=== PATIENT | male | born 1940 | race Caucasian/White ===

== ENCOUNTER 2016-11-06 00:27 | Inpatient (IN) | payer OTHER ==
--- NOTE | 2016-11-06 01:07 | PDOC ---
History of Present Illness - General History Source: Patient Exam Limitations: No Limitations - History of Present Illness Initial Comments: 11/06/16 01:14 The patient is a 76 year old male with history significant for inguinal hernia who presents to the ED complaining of a painful right lower abdominal mass that began this evening while pulling luggage. He was unable to reduce it himself and came to the ED for further evaluation. No fever or chills. No nausea, vomiting, or diarrhea. <Franny Her - Last Filed: 11/06/16 02:11> <Esperanza King - Last Filed: 11/06/16 05:44> - General Chief Complaint: Pain, Acute Stated Complaint: HERNIA Time Seen by Provider: 11/06/16 00:51 Past History <Franny Her - Last Filed: 11/06/16 02:11> - Psycho/Social/Smoking Cessation Hx Suicidal Ideation: No Smoking History: Never smoked <Esperanza King - Last Filed: 11/06/16 05:44> - Past Medical History Allergies/Adverse Reactions: Allergies Allergy/AdvReac Type Severity Reaction Status Date / Time No Known Allergies Allergy Verified 11/06/16 00:37 Home Medications: Ambulatory Orders Aspirin [ASA -] 81 mg PO DAILY 11/06/16 Lisinopril [Prinivil] 20 mg PO DAILY 11/06/16 Review of Systems - Review of Systems Able to Perform ROS?: Yes Comments:: 11/06/16 01:17 GENERAL/CONSTITUTIONAL: No fever or chills. No weakness. HEAD, EYES, EARS, NOSE AND THROAT: No change in vision. No ear pain or discharge. No sore throat CARDIOVASCULAR: No chest pain or shortness of breath. RESPIRATORY: No cough, wheezing, or hemoptysis. GASTROINTESTINAL: Right inguinal pain, right inguinal mass. No nausea, vomiting , diarrhea or constipation. GENITOURINARY: No dysuria, frequency, or change in urination. MUSCULOSKELETAL: No joint or muscle swelling or pain. No neck or back pain. SKIN: No rash NEUROLOGIC: No headache, vertigo, loss of consciousness, or change in strength/ sensation. ENDOCRINE: No increased thirst. No abnormal weight change. HEMATOLOGIC/LYMPHATIC: No anemia, easy bleeding, or history of blood clots. ALLERGIC/IMMUNOLOGIC: No hives or skin allergy. <Franny Her - Last Filed: 11/06/16 02:11> *Physical Exam - Vital Signs Last Vital Signs Temp Pulse Resp BP Pulse Ox 97.9 F 56 L 18 190/80 98 11/06/16 00:35 11/06/16 00:35 11/06/16 00:35 11/06/16 00:35 11/06/16 00:35 - Physical Exam Comments: 11/06/16 01:17 GENERAL: Awake, alert, and fully oriented, mildly uncomfortable appearing. HEAD: No signs of trauma EYES: PERRLA, EOMI, sclera anicteric, conjunctiva clear ENT: Auricles normal inspection, hearing grossly normal, nares patent, oropharynx clear without exudates. Moist mucosa NECK: Normal ROM, supple, no lymphadenopathy, JVD, or masses LUNGS: Breath sounds equal, clear to auscultation bilaterally. No wheezes, and no crackles HEART: Regular rate and rhythm, normal S1 and S2, no murmurs, rubs or gallops ABDOMEN: Incarcerated right inguinal hernia, tender to palpation. Soft, normoactive bowel sounds. No guarding, no rebound. EXTREMITIES: Normal range of motion, no edema. No clubbing or cyanosis. No cords, erythema, or tenderness NEUROLOGICAL: Cranial nerves II through XII grossly intact. Normal speech, normal gait SKIN: Warm, Dry, normal turgor, no rashes or lesions noted. <Franny Her - Last Filed: 11/06/16 02:11> - Vital Signs Last Vital Signs Temp Pulse Resp BP Pulse Ox 97.9 F 56 L 18 190/80 98 11/06/16 00:35 11/06/16 00:35 11/06/16 00:35 11/06/16 00:35 11/06/16 00:35 <Esperanza King - Last Filed: 11/06/16 05:44> Heart Score/ECG Review #1 11/06/16 02:11 EKG obtained 2:09 Marked sinus bradycardia at 42 bpm. Abnormal ECG. <Franny Her - Last Filed: 11/06/16 02:11> ED Treatment Course - LABORATORY CBC & Chemistry Diagram: 11/06/16 02:04 11/06/16 02:04 <Franny Her Last Filed: 11/06/16 02:11> - LABORATORY CBC & Chemistry Diagram: 11/06/16 02:04 11/06/16 02:04 <Esperanza King - Last Filed: 11/06/16 05:44> Medical Decision Making - Medical Decision Making 11/06/16 02:21 Patient Name: Michael Young This is a preliminary report by imaging production mechanic Exam: Right inguinal sonogram Images: 12 Clinical indication: Incarcerated hernia. Impression: A complex ovoid process is seen in the right inguinal canal with surrounding fluid. This may represent bowel with contents in the lumen. Heterogeneous echogenic components are noted. Consider cross-sectional imaging for further evaluation. THIS DOCUMENT HAS BEEN ELECTRONICALLY SIGNED 11/06/16 05:04 Patient Name: Michael Young THIS IS A PRELIMINARY REPORT FROM [facility] DATE OF SERVICE: 2016-11-06 04:10:51.0 IMAGES: [id number] EXAM: ABDOMEN & PELVIS CT WITH CONTR HISTORY:Right inguinal hernia COMPARISON: None. TECHNIQUE: Ct of the abdomen and pelvis with serial axial images extending from the dome of the liver to the perineum was performed following the intraqvenous administration of vascular contrat and the administration of gastrointestinal contrast. FINDINGS:Liver: Normal there are small hepatic cysts Spleen: Normal Pancreas: Normal Gallbladder: Normal Stomach: Normal Small bowel: There is a focal thickened segment of small bowel in the right lower quadrant without pneumatosis , or obstruction. Large bowel: There is diverticulosis without diverticulitis. Appendix: Appendix is visualized posterior to the cecum and appears normal. Adrenals: Normal Kidneys: Right renal cyst. There is no hydronephrosis, renal stone. Vascular: There are mild atherosclerotic changes in the abdominal aorta. Mesenteric branches enhance normally Lymphatic: There no enlarged lymph nodes. Peritoneal column there is no free peritoneal air, or fluid. There is some haziness in the right lower quadrant mesenteric fat. Pelvis: Prostate appears normal. Bladder appears normal. There is a right inguinal hernia. There is a fluid collection within the inguinal hernia and there is some herniated within both inguinal canals. Inferior thorax: Normal Skeletal: Normal focus of lucency in the L3 vertebral body is likely related to a hemangioma IMPRESSION: Right inguinal hernia containing a small amount of fluid. No herniated bowel is time. Segment of thickened small bowel in the right lower quadrant may reflect edema from previous, intermittent herniation, or inflammation. Correlation with history is recommended THIS DOCUMENT HAS BEEN ELECTRONICALLY SIGNED Dr. Hankins, surgeon is aware of the patient. Pt will be seen by surgery in the AM; Hospitalist will admit the patient <Esperanza King - Last Filed: 11/06/16 05:44> *DC/Admit/Observation/Transfer - Attestations Scribe Attestion: 11/06/16 01:19 Documentation prepared by Franny Her, acting as biomedical photographer for Esperanza King MD. <Franny Her - Last Filed: 11/06/16 02:11> - Discharge Dispostion Admit: Yes <Esperanza King - Last Filed: 11/06/16 05:44> Diagnosis at time of Disposition: Unilateral incarcerated inguinal hernia - Discharge Dispostion Condition at time of disposition: Guarded
[2016-11-06] MEDS ORDERED: SODIUM CHLORIDE 0.9% 500 ML INFUS.BAG IV ONE (01:17)
[2016-11-06] MEDS ORDERED: morphine CARPU-JECT 2 MG/1 ML DISP.SYRIN IVPUSH ONE (01:17)
[2016-11-06 02:11] LABS: BASOPHIL 0.8 % (0-2.0); EOSINOPHIL 2.7 % (0-4.5); MCH 28.4 pg (25.7-33.7); MCHC 32.9 g/dl (32.0-35.9); MEAN CELL VOLUME 86.2 fl (80-96); MEAN PLT VOLUME 9.2 fl (7.5-11.1); NEUTROPHILS 58.5 % (42.8-82.8); PLATELET COUNT 225 K/MM3 (134-434); RDW 13.8 % (11.9-15.9); WHITE BLOOD COUNT 9.1 K/mm3 (4.0-10.0)
[2016-11-06 02:27] LABS: INR 1.08 (0.82-1.09); PROTHROMBIN TIME (PATIENT) 11.9 SEC (9.98-11.88)
[2016-11-06] MEDS ORDERED: morphine CARPU-JECT 2 MG/1 ML DISP.SYRIN ONE (02:33)
[2016-11-06 03:20] LABS: ALBUMIN 4.1 g/dl (3.4-5.0); ALK PHOS 69 U/L (45-117); ANION GAP 6 (8-16); BILIRUBIN,TOTAL 0.4 mg/dL (0.2-1.0); CALCIUM 9.4 mg/dL (8.5-10.1); CO2 34 mmol/L (21-32); COCKROFT - GAULT 81.89; CREATININE 0.9 mg/dL (0.7-1.3); GLUCOSE,RANDOM 99 mg/dL (74-106); SGOT/AST 20 U/L (15-37); SGPT/ALT 32 U/L (12-78); TOT PROT 7.1 g/dl (6.4-8.2)
--- NOTE | 2016-11-06 06:30 | HP ---
CHIEF COMPLAINT: right groin pain s/p lifting luggage PCP: Jeferson Grace HISTORY OF PRESENT ILLNESS: This is a 76 yo man with history of HTN and BPH who presents for escalating right groin pain. Patient states he recently travelled from the [place] and was lifting his and his 's luggage repeatedly during airport delays. Upon arriving to his home, he felt a gradual escalating pain in his right groin. He denies trauma. ER course was notable for: (1) right inguinal pain (2) hernia on US and CT Recent Travel: Arrived from 11/05/16 PAST MEDICAL HISTORY: HTN, BPH PAST SURGICAL HISTORY: denies Social History: Smoking: denies Alcohol: denies Drugs: denies Allergies No Known Allergies Allergy (Verified 11/06/16 00:37) HOME MEDICATIONS: Home Medications 3 Medication Instructions Recorded Aspirin [ASA -] 81 mg PO DAILY 11/06/16 Hydrochlorothiazide [Hctz -] 25 mg PO DAILY 11/06/16 Lisinopril [Prinivil] 20 mg PO DAILY 11/06/16 REVIEW OF SYSTEMS CONSTITUTIONAL: Absent: fever, chills, diaphoresis, generalized weakness, malaise, loss of appetite, weight change HEENT: Absent: rhinorrhea, nasal congestion, throat pain, throat swelling, difficulty swallowing, mouth swelling, ear pain, eye pain, visual changes CARDIOVASCULAR: Absent: chest pain, syncope, palpitations, irregular heart rate, lightheadedness , peripheral edema RESPIRATORY: Absent: cough, shortness of breath, dyspnea with exertion, orthopnea, wheezing, stridor, hemoptysis GASTROINTESTINAL: Absent: abdominal pain, abdominal distension, nausea, vomiting, diarrhea, constipation, melena, hematochezia GENITOURINARY: right groin pain Absent: dysuria, frequency, urgency, hesitancy, hematuria, flank pain, genital pain MUSCULOSKELETAL: Absent: myalgia, arthralgia, joint swelling, back pain, neck pain SKIN: Absent: rash, itching, pallor HEMATOLOGIC/IMMUNOLOGIC: Absent: easy bleeding, easy bruising, lymphadenopathy, frequent infections ENDOCRINE: Absent: unexplained weight gain, unexplained weight loss, heat intolerance, cold intolerance NEUROLOGIC: Absent: headache, focal weakness or paresthesias, dizziness, unsteady gait, seizure, mental status changes, bladder or bowel incontinence PSYCHIATRIC: Absent: anxiety, depression, suicidal or homicidal ideation, hallucinations. PHYSICAL EXAMINATION Vital Signs - 24 hr 3 11/06/16 11/06/16 00:35 05:35 Temperature 97.9 F Pulse Rate 56 L Pulse Rate [ 55 L Right Radial] Respiratory 18 22 Rate Blood Pressure 190/80 Blood Pressure 160/90 [Right Arm] O2 Sat by Pulse 98 96 Oximetry (%) GENERAL: Awake, alert, and fully oriented, in no acute distress. HEAD: Normal with no signs of trauma. EYES: Pupils equal, round and reactive to light, extraocular movements intact, sclera anicteric, conjunctiva clear. No lid lag. EARS, NOSE, THROAT: Ears normal, nares patent, oropharynx clear without exudates. Moist mucous membranes. NECK: Normal range of motion, supple without lymphadenopathy, JVD, or masses. LUNGS: Breath sounds equal, clear to auscultation bilaterally. No wheezes, and no crackles. No accessory muscle use. HEART: Regular rate and rhythm, normal S1 and S2 without murmur, rub or gallop. ABDOMEN: Soft, nontender, not distended, normoactive bowel sounds, no guarding, no rebound, no masses. No hepatomegaly or splenomegaly. GENITALIA: uncircumcised. testes are descended bilaterally, firm without masses or lesions. Soft mobile non-reducible mass noted in right inguinal canal MUSCULOSKELETAL: Normal range of motion at all joints. No bony deformities or tenderness. No CVA tenderness. UPPER EXTREMITIES: 2+ pulses, warm, well-perfused. No cyanosis. No clubbing. No peripheral edema. LOWER EXTREMITIES: 2+ pulses, warm, well-perfused. No calf tenderness. No peripheral edema. NEUROLOGICAL: Cranial nerves II-XII intact. Normal speech. Normal gait. PSYCHIATRIC: Cooperative. Good eye contact. Appropriate mood and affect. SKIN: Warm, dry, normal turgor, no rashes or lesions noted, normal capillary refill. Imaging: Patient Name: Michael Young THIS IS A PRELIMINARY REPORT FROM [facility]CH[facility] DATE OF SERVICE: 2016-11-06 04:10:51.0 IMAGES: [id number] EXAM: ABDOMEN & PELVIS CT WITH CONTR HISTORY:Right inguinal hernia COMPARISON: None. TECHNIQUE: Ct of the abdomen and pelvis with serial axial images extending from the dome of the liver to the perineum was performed following the intraqvenous administration of vascular contrat and the administration of gastrointestinal contrast. FINDINGS:Liver: Normal there are small hepatic cysts Spleen: Normal Pancreas: Normal Gallbladder: Normal Stomach: Normal Small bowel: There is a focal thickened segment of small bowel in the right lower quadrant without pneumatosis , or obstruction. Large bowel: There is diverticulosis without diverticulitis. Appendix: Appendix is visualized posterior to the cecum and appears normal. Adrenals: Normal Kidneys: Right renal cyst. There is no hydronephrosis, renal stone. Vascular: There are mild atherosclerotic changes in the abdominal aorta. Mesenteric branches enhance normally Lymphatic: There no enlarged lymph nodes. Peritoneal column there is no free peritoneal air, or fluid. There is some haziness in the right lower quadrant mesenteric fat. Pelvis: Prostate appears normal. Bladder appears normal. There is a right inguinal hernia. There is a fluid collection within the inguinal hernia and there is some herniated within both inguinal canals. Inferior thorax: Normal Skeletal: Normal focus of lucency in the L3 vertebral body is likely related to a hemangioma IMPRESSION: Right inguinal hernia containing a small amount of fluid. No herniated bowel is time. Segment of thickened small bowel in the right lower quadrant may reflect edema from previous, intermittent herniation, or inflammation. Correlation with history is recommended THIS DOCUMENT HAS BEEN ELECTRONICALLY SIGNED Patient Name: Michael Young This is a preliminary report by imaging extension service advisor Exam: Right inguinal sonogram Images: 12 Clinical indication: Incarcerated hernia. Impression: A complex ovoid process is seen in the right inguinal canal with surrounding fluid. This may represent bowel with contents in the lumen. Heterogeneous echogenic components are noted. Consider cross-sectional imaging for further evaluation. THIS DOCUMENT HAS BEEN ELECTRONICALLY SIGNED Laboratory Results - last 24 hr 3 11/06/16 11/06/16 11/06/16 02:04 02:04 02:04 WBC 9.1 RBC 4.74 Hgb 13.4 Hct 40.9 MCV 86.2 MCHC 32.9 RDW 13.8 Plt Count 225 MPV 9.2 Neutrophils % 58.5 Lymphocytes % 31.0 Monocytes % 7.0 Eosinophils % 2.7 Basophils % 0.8 INR 1.08 PTT (Actin FS) 32.9 Sodium Potassium Chloride Carbon Dioxide Anion Gap BUN Creatinine Creat Clearance w eGFR Random Glucose Calcium Total Bilirubin AST ALT Alkaline Phosphatase Total Protein Albumin Blood Type Antibody Screen 3 11/06/16 11/06/16 02:04 02:04 WBC RBC Hgb Hct MCV MCHC RDW Plt Count MPV Neutrophils % Lymphocytes % Monocytes % Eosinophils % Basophils % INR PTT (Actin FS) Sodium 140 Potassium 3.5 Chloride 100 Carbon Dioxide 34 H Anion Gap 6 L BUN 16 Creatinine 0.9 Creat Clearance w eGFR > 60 Random Glucose 99 Calcium 9.4 Total Bilirubin 0.4 AST 20 ALT 32 Alkaline Phosphatase 69 Total Protein 7.1 Albumin 4.1 Blood Type A POSITIVE Antibody Screen Negative ASSESSMENT/PLAN: A: 76 yo man with non-reducible hernia on right inguinal canal. P: right inguinal incarcerated hernia -pre-op labs including CBC, CMP, coags, T&S, lactate -pain management -NPO for possible surgery -surgery Hankins following HTN -continue home meds F/E/N -NPO DVT ppx -OOB Dispo: The patient needs inpatient care for his emergent condition. Code Status: FULL CODE Visit type - Emergency Visit Emergency Visit: Yes ED Registration Date: 11/06/16 Care time: The patient presented to the Emergency Department on the above date and was hospitalized for further evaluation of their emergent condition. - New Patient This patient is new to me today: Yes Date on this admission: 11/18/16 - Critical Care Critical Care patient: No
[2016-11-06] MEDS ORDERED: METRONIDAZOLE 500 MG PREMIXED 100 ML IVPB SCH (10:00)
[2016-11-06] MEDS ORDERED: ASPIRIN 81 MG CHEWABLE TABLETS PO SCH (10:00)
[2016-11-06] MEDS ORDERED: CEFTRIAXONE 50 ML IVPB SCH (10:00)
--- NOTE | 2016-11-06 10:08 | CONSULT ---
- Consultation REQUESTING PROVIDER: Jordan Olivier OYSTER CULTURIST CONSULT REQUEST: We have been asked to surgically evaluate this patient for ( specify). PCP:Alisha Olivier HISTORY OF PRESENT ILLNESS: Right groin pain after lifting a suitcase while traveling; patient w/ known RIH and possible LIH presented as noted; he was thought to have an incarcerated RIH; CT a/p was done; findings are reviewed; he has no c/o today; wants to eat; no abdominal pain. PMHx: HTN PSHx: none Home Medications Medication Instructions Recorded Aspirin [ASA -] 81 mg PO DAILY 11/06/16 Hydrochlorothiazide [Hctz -] 25 mg PO DAILY 11/06/16 Lisinopril [Prinivil] 20 mg PO DAILY 11/06/16 Allergies Allergy/AdvReac Type Severity Reaction Status Date / Time No Known Allergies Allergy Verified 11/06/16 00:37 RPHYSICAL EXAM: GENERAL: Awake, alert, and fully oriented, in no acute distress. HEAD: Normal with no signs of trauma. EYES: PERRL, sclera anicteric, conjunctiva clear. NECK: Normal ROM, supple without lymphadenopathy, JVD, or masses. ABDOMEN: Soft, nontender, not distended, normoactive bowel sounds, no guarding, no rebound, no masses. No organomegaly. Reducible RIH and LIH; genitalia re normal; both testes are palpable. Skin is normal in both groins. MUSCULOSKELETAL: Normal ROM at all joints. No bony deformities or tenderness. No CVA tenderness. UPPER EXTREMITIES: 2+ pulses, warm, well-perfused. No cyanosis. Cap refill <2 seconds. No peripheral edema. LOWER EXTREMITIES: 2+ pulses, warm, well-perfused. No calf tenderness. No peripheral edema. NEUROLOGICAL: Normal speech, gait not observed. PSYCH: Cooperative. Good eye contact. Appropriate mood and affect. SKIN: Warm, dry, normal turgor, no rashes or lesions noted. Vital Signs Temperature 97.7 F 11/06/16 08:30 Pulse Rate 48 L 11/06/16 08:30 Respiratory Rate 18 11/06/16 08:30 Blood Pressure 158/72 11/06/16 08:30 O2 Sat by Pulse Oximetry (%) 96 11/06/16 05:35 Lab Results WBC 9.1 K/mm3 (4.0-10.0) 11/06/16 02:04 RBC 4.74 M/mm3 (4.00-5.60) 11/06/16 02:04 Hgb 13.4 GM/dL (11.7-16.9) 11/06/16 02:04 Hct 40.9 % (35.4-49) 11/06/16 02:04 MCV 86.2 fl (80-96) 11/06/16 02:04 MCHC 32.9 g/dl (32.0-35.9) 11/06/16 02:04 RDW 13.8 % (11.9-15.9) 11/06/16 02:04 Plt Count 225 K/MM3 (134-434) 11/06/16 02:04 Sodium 140 mmol/L (136-145) 11/06/16 02:04 Potassium 3.5 mmol/L (3.5-5.1) 11/06/16 02:04 Chloride 100 mmol/L (98-107) 11/06/16 02:04 Carbon Dioxide 34 mmol/L (21-32) H 11/06/16 02:04 Anion Gap 6 (8-16) L 11/06/16 02:04 BUN 16 mg/dL (7-18) 11/06/16 02:04 Creatinine 0.9 mg/dL (0.7-1.3) 11/06/16 02:04 Random Glucose 99 mg/dL (74-106) 11/06/16 02:04 Calcium 9.4 mg/dL (8.5-10.1) 11/06/16 02:04 Blood Type A POSITIVE 11/06/16 02:04 Antibody Screen Negative 11/06/16 02:04 INR 1.08 (0.82-1.09) 11/06/16 02:04 CT a/p reviewed IMP: BIH's; right ?? incarcerated and now reduced PLAN Suggest BIH repair w/ mesh on this admission; d/w patient in [place]; he is amenable to same; r/b/t/a's d/w him; will put him on the OR add on schedule for 11/07/16; keep NPO after MN. Thank you Alek Hankins MD FACS Visit type - Case Type Case Type: ED Admission - Emergency Emergency Visit: Yes ED Registration Date: 11/06/16 Care time: The patient presented to the Emergency Department on the above date and was hospitalized for further evaluation of their emergent condition. - New patient This patient is new to me today: Yes Date on this admission: 11/06/16 - Critical Care Critical Care patient: No
[2016-11-06] MEDS: HYDROCHLOROTHIAZIDE 12.5 MG CAPSULE (FP) PO SCH ×2 (12:24→15:35)
[2016-11-06] MEDS: LISINOPRIL 20 MG TABLET (FP) PO SCH ×2 (12:25→15:35)
[2016-11-06] MEDS: PIPERACILLIN/TAZOB 3.375 GM/50 ML PRE-DOCKED IVPB SCH ×2 (12:45→17:16)
--- NOTE | 2016-11-06 13:08 | HOSP ---
Physical Examination Vital Signs: Vital Signs Temperature 97.7 F 11/06/16 08:30 Pulse Rate 48 L 11/06/16 08:30 Respiratory Rate 18 11/06/16 08:30 Blood Pressure 158/72 11/06/16 08:30 O2 Sat by Pulse Oximetry (%) 96 11/06/16 05:35 Findings/Remarks: Subjective: The patient was seen and examined at the bedside, he has no complaints of pain at this time. Current Medications Generic Name Dose Route Start Last Admin Trade Name Steffanie PRN Reason Stop Dose Admin Aspirin 81 mg 11/06/16 10:00 11/06/16 12:24 Asa - PO Not Given DAILY EJ Hydrochlorothiazide 25 mg 11/06/16 10:00 11/06/16 12:24 Hctz - PO Not Given DAILY EJ Lisinopril 20 mg 11/06/16 10:00 11/06/16 12:25 Prinivil PO Not Given DAILY EJ Piperacillin Sod/Tazobactam Sod 3.375 gm 11/06/16 11:30 11/06/16 12:45 Zosyn 3.375gm Ivpb (Pre-Docked) IVPB 3.375 gm Q8H-IV EJ Administration Protocol Objective: Vital Signs Period Temp Pulse Resp BP Sys/Collins Pulse Ox Last 24 Hr 97.7 F-97.9 F 48-56 18-22 158-190/72-90 96-98 Physical Exam: General: NAD, A&Ox3 Lungs: CTA bilaterally Heart: Bradycardia, S1S2 Abd: Soft, non-tender, non-distended. Normoactive bowel sounds. Reducible right inguinal hernia Ext: War, well-perfused. 2+ DP/PT bilaterally Neuro: CN 2-12 intact CBCD WBC 9.1 K/mm3 (4.0-10.0) 11/06/16 02:04 RBC 4.74 M/mm3 (4.00-5.60) 11/06/16 02:04 Hgb 13.4 GM/dL (11.7-16.9) 11/06/16 02:04 Hct 40.9 % (35.4-49) 11/06/16 02:04 MCV 86.2 fl (80-96) 11/06/16 02:04 MCHC 32.9 g/dl (32.0-35.9) 11/06/16 02:04 RDW 13.8 % (11.9-15.9) 11/06/16 02:04 Plt Count 225 K/MM3 (134-434) 11/06/16 02:04 MPV 9.2 fl (7.5-11.1) 11/06/16 02:04 CMP Sodium 140 mmol/L (136-145) 11/06/16 02:04 Potassium 3.5 mmol/L (3.5-5.1) 11/06/16 02:04 Chloride 100 mmol/L (98-107) 11/06/16 02:04 Carbon Dioxide 34 mmol/L (21-32) H 11/06/16 02:04 Anion Gap 6 (8-16) L 11/06/16 02:04 BUN 16 mg/dL (7-18) 11/06/16 02:04 Creatinine 0.9 mg/dL (0.7-1.3) 11/06/16 02:04 Creat Clearance w eGFR > 60 (>60) 11/06/16 02:04 Random Glucose 99 mg/dL (74-106) 11/06/16 02:04 Calcium 9.4 mg/dL (8.5-10.1) 11/06/16 02:04 Total Bilirubin 0.4 mg/dL (0.2-1.0) 11/06/16 02:04 AST 20 U/L (15-37) 11/06/16 02:04 ALT 32 U/L (12-78) 11/06/16 02:04 Alkaline Phosphatase 69 U/L (45-117) 11/06/16 02:04 Total Protein 7.1 g/dl (6.4-8.2) 11/06/16 02:04 Albumin 4.1 g/dl (3.4-5.0) 11/06/16 02:04 Assessment: This is a 76 year old male with PMHx of HTN, BPH who presented to the ED with right groin pain. Plan: 1) Surgery: Reducible right inguinal hernia - For repair tomorrow - NPO after midnight - Appreciate surgery consult 2) ID: Possible acute diverticulitis - As evidence on CTAP: thickening of the terminal ileum wall consistent with ileitis, minimal stranding surrounding the junction of the distal descending and proximal sigmoid colon that may represent early/very minimal acute appendicitis vs. mild epiploic appendagitis - WBC wnl, afebrile - Discussed with Dr. Hankins, recommendation to start abx, ceftriaxone and flagyl , however flagyl is on backorder, will start zosyn (approved by ID, Dr. Mott) 3) Cardiology: HTN - Continue Hctz - Continue Lisinopril - Hold ASA for surgery 4) F/E/N: - Regular diet - NPO after midnight - Monitor electrolytes 5) Prophylaxis: - OOB ambulating - SCDs bilaterally - Hold chemical dvt prophylaxis for surgery tomorrow 6) Dispo: - Requires continued inpatient care CODE STATUS: FULL CODE
[2016-11-06 13:46] VITALS: BMI 28.8
[2016-11-07] MEDS: PIPERACILLIN/TAZOB 3.375 GM/50 ML PRE-DOCKED IVPB SCH ×2 (02:20→09:23)
[2016-11-07] MEDS: HYDROCHLOROTHIAZIDE 12.5 MG CAPSULE (FP) PO SCH (09:22)
[2016-11-07] MEDS: LISINOPRIL 20 MG TABLET (FP) PO SCH (09:23)
--- NOTE | 2016-11-07 10:37 | EKG ---
Test Reason : Blood Pressure : / mmHG Vent. Rate : 063 BPM Atrial Rate : 063 BPM P-R Int : 160 ms QRS Dur : 084 ms QT Int : 430 ms P-R-T Axes : 054 021 017 degrees QTc Int : 440 ms SINUS RHYTHM WITH SINUS ARRHYTHMIA WITH OCCASIONAL PREMATURE VENTRICULAR COMPLEXES OTHERWISE NORMAL ECG WHEN COMPARED WITH ECG OF 06-NOV-2016 02:09, PREMATURE VENTRICULAR COMPLEXES ARE NOW PRESENT VENT. RATE HAS INCREASED BY 21 BPM Confirmed by REMBERTO WALTON, VERO ([id number]) on 11/07/2016 10:36:54 AM Referred By: Isaac LORENZO Confirmed By:VERO SR MD
--- NOTE | 2016-11-07 10:41 | EKG ---
Test Reason : Blood Pressure : / mmHG Vent. Rate : 042 BPM Atrial Rate : 042 BPM P-R Int : 162 ms QRS Dur : 080 ms QT Int : 452 ms P-R-T Axes : 053 026 029 degrees QTc Int : 377 ms MARKED SINUS BRADYCARDIA ABNORMAL ECG NO PREVIOUS ECGS AVAILABLE Confirmed by VERO SR MD ([id number]) on 11/07/2016 10:40:57 AM Referred By: Confirmed By:VERO SR MD
[2016-11-07] MEDS ORDERED: LIDOCAINE HCL 1%, 10 MG/ML (20ML VIAL) ONE (12:54)
[2016-11-07] MEDS ORDERED: BUPIVACAINE HCL/PF 0.5% (5MG/ML) 10 ML VIAL ONE (12:54)
[2016-11-07] MEDS ORDERED: BUPIVACAINE HCL/PF 0.5% (5MG/ML) 10 ML VIAL IJ ONE (13:36)
[2016-11-07] MEDS ORDERED: LIDOCAINE HCL 1%, 10 MG/ML (20ML VIAL) IJ ONE (13:36)
--- NOTE | 2016-11-07 15:18 | PN ---
Physical Exam: SUBJECTIVE: Patient seen and examined OBJECTIVE: Vital Signs Period Temp Pulse Resp BP Sys/Collins Pulse Ox Last 24 Hr 98.3 F-98.4 F 51-60 16-20 146-167/55-88 97-97 GENERAL: The patient is awake, alert, and fully oriented, in no acute distress. HEAD: Normal with no signs of trauma. EYES: PERRL, extraocular movements intact, sclera anicteric, conjunctiva clear. No ptosis. ENT: Ears normal, nares patent, oropharynx clear without exudates, moist mucous membranes. NECK: Trachea midline, full range of motion, supple. LUNGS: Breath sounds equal, clear to auscultation bilaterally, no wheezes, no crackles, no accessory muscle use. HEART: Regular rate and rhythm, S1, S2 without murmur, rub or gallop. ABDOMEN: Soft, nontender, nondistended, normoactive bowel sounds, no guarding, no rebound, no hepatosplenomegaly, no masses. EXTREMITIES: 2+ pulses, warm, well-perfused, no edema. NEUROLOGICAL: Cranial nerves II through XII grossly intact. Normal speech, gait not observed. PSYCH: Normal mood, normal affect. SKIN: Warm, dry, normal turgor, no rashes or lesions noted Active Medications Generic Name Dose Route Start Last Admin Trade Name Freq PRN Reason Stop Dose Admin Fentanyl 25 mcg 11/07/16 14:24 Sublimaze Injection - IVPUSH 11/10/16 14:25 [id number] PRN PAIN Hydrochlorothiazide 25 mg 11/06/16 10:00 11/07/16 09:22 Hctz - PO 25 mg DAILY EJ Administration Lisinopril 20 mg 11/06/16 10:00 11/07/16 09:23 Prinivil PO 20 mg DAILY EJ Administration Piperacillin Sod/Tazobactam Sod 3.375 gm 11/06/16 11:30 11/07/16 09:23 Zosyn 3.375gm Ivpb (Pre-Docked) IVPB 3.375 gm Q8H-IV EJ Administration Protocol ASSESSMENT/PLAN:
[2016-11-07] MEDS ORDERED: oxyCODONE HCL 5 MG TABLET PO PRN (15:35)
[2016-11-07] MEDS ORDERED: ACETAMINOPHEN 325 MG TABLET (FP) PO PRN (15:35)
--- NOTE | 2016-11-07 15:39 | OP ---
Operative Note - Note: Operative Date: 11/07/16 Pre-Operative Diagnosis: bilateral inguinal hernias Operation: bilateral open inguinal hernia repair with mesh Post-Operative Diagnosis: Same as Pre-op Surgeon: Alek Hankins Industrial Security Analyst: Angely Alvarez Anesthesia: General Estimated Blood Loss (mls): 20 Operative Report Dictated: Yes
--- NOTE | 2016-11-07 15:40 | SURG ---
Surgery X Ray Examiner Of Aircraft Note X Ray Examiner Of Aircraft: Angely Alvarez PA-C Date of Service: 11/07/16 Diagnosis: bilateral inguinal hernias Procedure: bilateral open inguinal hernia repair with mesh I was present for the entirety of the operative procedure. For further detail, please refer to operative report. Visit type - Case Type Case Type: ED Admission - New patient This patient is new to me today: Yes Date on this admission: 11/07/16
[2016-11-07] MEDS ORDERED: LACTATED RINGERS SOLUTION 1,000 ML IV SCH (15:45)
--- NOTE | 2016-11-07 19:25 | PN ---
Physical Exam: SUBJECTIVE: Patient seen and examined at bedside. Family members present. Feels much better, very little pain at surgical sites. Tolerated clears for dinner. Voiding, no hematuria. OBJECTIVE: Vital Signs Period Temp Pulse Resp BP Sys/Collins Pulse Ox Last 24 Hr 97.2 F-98.4 F 51-83 16-18 140-171/55-88 95-100 GENERAL: The patient is awake, alert, and fully oriented, in no acute distress. LUNGS: Breath sounds equal, clear to auscultation bilaterally, no wheezes, no crackles, no accessory muscle use. HEART: Regular rate and rhythm, S1, S2 without murmur, rub or gallop. ABDOMEN: Soft, diffusely tender, pubic area swollen, surgical dressings with minimal strikethrough not disturbed, hypoactive bowel sounds EXTREMITIES: 2+ pulses, warm, well-perfused, no edema. NEUROLOGICAL: Cranial nerves II through XII grossly intact. Normal speech, gait not observed. Active Medications Generic Name Dose Route Start Last Admin Trade Name Freq PRN Reason Stop Dose Admin Acetaminophen 650 mg 11/07/16 15:35 Tylenol - PO Q4H PRN FEVER OR PAIN Hydrochlorothiazide 25 mg 11/08/16 10:00 Hctz - PO DAILY EJ Lactated Ringer's 1,000 mls @ 100 mls/hr 11/07/16 15:45 Lactated Ringers Solution IV ASDIR EJ Lisinopril 20 mg 11/08/16 10:00 Prinivil PO DAILY EJ Oxycodone HCl 5 mg 11/07/16 15:35 Roxicodone - PO Q4H PRN PAIN ASSESSMENT/PLAN 76 year-old man with a PMH of HTN and BPH, admitted for incarcerated inguinal hernia. Bilateral inguinal hernias Right incarcerated inguinal hernia --s/p repair --pain well-managed with PO meds Hypertension --continue lisinopril, HCTZ F/E/N Fluids: PO intake adequate Electrolytes: replete as indicated Nutrition: clears; advance as tolerated DVT prophylaxis: hold chemical prophylaxis immediate post-op; resume tomorrow if no bleeding issues; SCDs Dispo: continues to require inpatient care Visit type - Emergency Visit Emergency Visit: Yes ED Registration Date: 11/06/16 Care time: The patient presented to the Emergency Department on the above date and was hospitalized for further evaluation of their emergent condition. - New Patient This patient is new to me today: Yes Date on this admission: 11/08/16 - Critical Care Critical Care patient: No
[2016-11-08 07:35] VITALS: TEMP 98.1
--- NOTE | 2016-11-08 09:54 | PN ---
Progress Note (short form) - Note Progress Note: Pt tolerated a liquid diet, no nausea or emesis. He is voiding without difficulty. Vital Signs Period Temp Pulse Resp BP Sys/Collins Pulse Ox Last 24 Hr 97.2 F-98.1 F 64-83 16-18 139-171/57-87 95-100 PE: GEN: A&0 x3, NAD ABD: soft, non-distended, non-tender. Inc c/d/i with dressing. LE: no calf tenderness or swelling noted. A/P: s/p bilateral inguinal hernia with mesh, POD#1 doing well, plan for discharge to home as per the medical service oob/ambulate Discharge instruction completed and pain script sent PT seen with Dr. Hankins and he agrees with the plan Diet advanced
[2016-11-08] MEDS ORDERED: HYDROCHLOROTHIAZIDE 25 MG TABLET (FP) PO SCH (10:00)
[2016-11-08] MEDS ORDERED: LISINOPRIL 20 MG TABLET (FP) PO SCH (10:00)
[2016-11-08] MEDS ORDERED: MAGNESIUM HYDROX 2400MG/30ML ORAL SUSPENSION 30 ML CUP PO ONE (10:15)
--- NOTE | 2016-11-08 11:51 | DS ---
Physical Exam: SUBJECTIVE: Patient seen and examined at bedside. Feels very well, ready to go home. OBJECTIVE: Vital Signs Period Temp Pulse Resp BP Sys/Collins Pulse Ox Last 24 Hr 97.2 F-98.1 F 64-83 16-18 139-171/57-87 95-100 PHYSICAL EXAM GENERAL: The patient is awake, alert, and fully oriented, in no acute distress. LUNGS: Breath sounds equal, clear to auscultation bilaterally, no wheezes, no crackles, no accessory muscle use. HEART: Regular rate and rhythm, S1, S2 without murmur, rub or gallop. ABDOMEN: Soft, diffusely tender, pubic area swollen, surgical dressings with minimal strikethrough not disturbed, hypoactive bowel sounds EXTREMITIES: 2+ pulses, warm, well-perfused, no edema. NEUROLOGICAL: Cranial nerves II through XII grossly intact. Normal speech, gait not observed. LABS CBCD WBC 9.1 K/mm3 (4.0-10.0) 11/06/16 02:04 RBC 4.74 M/mm3 (4.00-5.60) 11/06/16 02:04 Hgb 13.4 GM/dL (11.7-16.9) 11/06/16 02:04 Hct 40.9 % (35.4-49) 11/06/16 02:04 MCV 86.2 fl (80-96) 11/06/16 02:04 MCHC 32.9 g/dl (32.0-35.9) 11/06/16 02:04 RDW 13.8 % (11.9-15.9) 11/06/16 02:04 Plt Count 225 K/MM3 (134-434) 11/06/16 02:04 MPV 9.2 fl (7.5-11.1) 11/06/16 02:04 CMP Sodium 140 mmol/L (136-145) 11/06/16 02:04 Potassium 3.5 mmol/L (3.5-5.1) 11/06/16 02:04 Chloride 100 mmol/L (98-107) 11/06/16 02:04 Carbon Dioxide 34 mmol/L (21-32) H 11/06/16 02:04 Anion Gap 6 (8-16) L 11/06/16 02:04 BUN 16 mg/dL (7-18) 11/06/16 02:04 Creatinine 0.9 mg/dL (0.7-1.3) 11/06/16 02:04 Creat Clearance w eGFR > 60 (>60) 11/06/16 02:04 Calcium 9.4 mg/dL (8.5-10.1) 11/06/16 02:04 Total Bilirubin 0.4 mg/dL (0.2-1.0) 11/06/16 02:04 AST 20 U/L (15-37) 11/06/16 02:04 ALT 32 U/L (12-78) 11/06/16 02:04 Alkaline Phosphatase 69 U/L (45-117) 11/06/16 02:04 Total Protein 7.1 g/dl (6.4-8.2) 11/06/16 02:04 Albumin 4.1 g/dl (3.4-5.0) 11/06/16 02:04 HOSPITAL COURSE: Date of Admission:11/06/16 Date of Discharge: 11/08/16 76 year-old man with a PMH of HTN and BPH, admitted for incarcerated inguinal hernia. Bilateral inguinal hernias Right incarcerated inguinal hernia --s/p bilateral repair with mesh --pain well-managed with PO meds --has been oob and ambulating --tolerating PO Hypertension --continued lisinopril, HCTZ Minutes to complete discharge: 35 Discharge Summary Reason For Visit: INCARCERATED INGUINAL HERNIA Current Active Problems Incarcerated inguinal hernia, unilateral (Acute) Condition: Improved - Instructions Diet, Activity, Other Instructions: Dr. Hankins's Discharge Instructions Dear Michael, Post Operative Instructions Physical activity Resume your normal everyday activity as tolerated no heavy lifting or exercise until seen by your surgeon. You may walk unlimited amounts of and climb stairs. You may resume driving the car when you feel safe and comfortable behind the wheel. Wound care If you have a bandage, leave it on, and keep dry for 48 - 72 hours. After that time discard the outer bandage. If there are tapes on the skin under the outer bandage, leave them in place. They will peel off in the next 7 to 10 days. Do Not peel them off. You may shower 2 days after surgery. If there are tapes present on the skin, they can get wet. Diet There are no dietary restrictions. Eat healthy, high-fiber foods. Drink 6 to 8 glasses of liquid each day. This will assist in keeping your bowels are regular. Pain management You may take Tylenol or acetaminophen or Ibuprofen (for example, Motrin, Advil etc.) Any pain prescription medication ordered should be taken as prescribed for moderate to severe pain. Call Dr. Hankins for any of the following: Severe pain not relieved by medication Fever of 101 or higher Excessive bleeding or drainage on dressing Inability to urinate Call the office at [phone] for a post operative appointment in 7 - 10 days. Referrals: Alek Hankins MD [Staff Physician] - Disposition: HOME - Home Medications Comprehensive Discharge Medication List: Ambulatory Orders Aspirin [ASA -] 81 mg PO DAILY 11/06/16 Hydrochlorothiazide [Hctz -] 25 mg PO DAILY 11/06/16 Lisinopril [Prinivil] 20 mg PO DAILY 11/06/16 Acetaminophen W/ Codeine #3 [Tylenol # 3 -] 1 tab PO Q6H PRN #20 tablet MDD 4 This patient is new to me today: No Emergency Visit: Yes ED Registration Date: 11/06/16 Care time: The patient presented to the Emergency Department on the above date and was hospitalized for further evaluation of their emergent condition. Critical Care patient: No - Discharge Referral Referred to [facility] Med [facility] No
[2016-11-08 12:44] VITALS: BP 56/37; PULSE 73
--- NOTE | 2016-11-09 09:55 | OP ---
DATE OF OPERATION: 11/07/2016 PREOPERATIVE DIAGNOSIS: Bilateral inguinal hernias. POSTOPERATIVE DIAGNOSIS: Bilateral inguinal hernias. PROCEDURE: Repair of bilateral inguinal hernias with mesh. SURGEON: Alek Hankins MD BODY SERVICE TEAM MEMBER: Angley Alvarez PA-C ANESTHESIA: General. OPERATIVE FINDINGS: There were right greater than left direct inguinal hernias with associated herniating preperitoneal fat. The rest of the findings were unremarkable. DESCRIPTION OF PROCEDURE: The patient was placed on the operating table in the supine position, and after the induction of general anesthesia and placement of sequential compression devices on the patient lower extremities, the lower abdomen was prepped with ChloraPrep and draped in sterile fashion. A time-out was taken, and a right groin incision mapped out, and area infiltrated with 1% lidocaine and 0.5% Marcaine in equal concentration. Incision was made with a scalpel and taken down through skin and subcutaneous tissue and Scarpas fascia. The external oblique fascia was divided proximally and then distally through the external ring in the direction of its fibers. The cord structures and nerve were elevated at the level of the pubic tubercle, and a [place] drain placed around them for retraction and identification purposes. The previously noted findings were observed. The herniating preperitoneal fat on the right was partially excised and sent for pathological examination, and then, the stump was reduced into the peritoneal cavity. Next, a piece of Parietex ProGrip Mesh was fashioned into the defect and anchored at the pubic tubercle, the shelving edge, and conjoint tendon respectively. A keyhole was created for the cord structures and the tails of the mesh brought above the level of the internal ring and anchored there with interrupted 2-0 Prolene. Hemostasis was checked for and noted to be good, and then, the cord structures and nerve were returned to their normal anatomic position, and the external oblique fascia closed using continuous 2-0 Vicryl recreating the external ring. Hemostasis was verified again, and then, the wound was copiously irrigated with sterile saline. Scarpas fascia was reapproximated with an interrupted 2-0 Vicryl, the deep dermis with interrupted 3-0 Vicryl. Attention was next focused to the left side, where the exact same procedure was repeated. At the completion of the left side, both skin incisions were closed with 4-0 Biosyn in a subcuticular continuous fashion. Steri-Strips, fluffs, and dry sterile dressings were placed, and the procedure terminated at this point. The patient aroused from general anesthesia and transferred to the post-anesthesia care unit in stable condition, awake and alert. ESTIMATED BLOOD LOSS: Approximately 20 mL. REPLACEMENTS: Crystalloid. DRAINS: None. SPECIMENS: Preperitoneal fat from the right and left inguinal canal. I, Alek Hankins, was physically present in the operating room from the time the patient was placed on the operating table until he was transferred to the post-anesthesia care unit in my accompaniment. MD SHAHAB Pearson/[id number]
--- NOTE | 2016-11-09 14:12 | PATH ---
Surgical Pathology Report Patient Name: CRISTINA FITZGERALD [facility]. Rec. #: [id number] /Age/Gender: 1940 (Age: 76) / M Account: [id number] Location: [address] [place] [address]/[facility] Taken: 11/07/2016 Received: 11/08/2016 Reported: 11/09/2016 Physicians: Alek Hankins MD Specimen(s) Received A: PREPERITONEAL FAT RIGHT INGUINAL B: PREPERITONEAL FAT LEFT INGUINAL Clinical History Bilateral inguinal hernia Final Diagnosis A. PREPERITONEAL FAT, RIGHT INGUINAL, HERNIA REPAIR: BENIGN FATTY TISSUE WITH VASCULAR CONGESTION. B. PREPERITONEAL FAT, LEFT INGUINAL, HERNIA REPAIR: BENIGN FATTY TISSUE IS VASCULAR CONGESTION. Electronically Signed Chandrakant Iniguez M.D. Gross Description A. Received in formalin labeled "pre-peritoneal fat" is a 7.0 x 2.5 x 1.5 cm portion of yellow, lobulated adipose tissue with attached huntley-melton fibromembranous tissue. No masses or areas of hemorrhage or necrosis are identified. Timber Repairer sections are submitted in one cassette. B. Received in formalin labeled "pre-peritoneal fat left inguinal" is a 5.8 x 4.5 x 1.3 cm portion of yellow, lobulated adipose tissue with attached huntley-melton fibromembranous tissue. No masses or areas of hemorrhage or necrosis are identified. Timber Repairer sections are submitted in one cassette. /11/08/2016 saudi/11/08/2016
== END 2016-11-08 14:15 | disposition home or self-care (01) | DRG 352 ==
LOC: JER 00:27 → JERBED 05:45 → UNDOADMIN 05:51 → JERBED 08:02 → J5S 08:02
PROVIDERS: ADMIT Internal Medicine; ATTEND Nurse Practitioner Acute Care
PROC: 0YUA0JZ Supplement Bilateral Inguinal Region with Synthetic Substitute, Open Approach (ICD-10-PCS; principal; 2016-11-07 10:45)
DX: K40.20 Bilateral inguinal hernia, without obstruction or gangrene, not specified as recurrent (principal); I10 Essential (primary) hypertension; N40.0 Benign prostatic hyperplasia without lower urinary tract symptoms
CPT/HCPCS: 36415; 74177-TC; 76856-TC; 80053; 83605; 85025; 85610; 85730; 86850; 86900; 86901; 88302-TC; 93005; 93010; 94760; 99282-25